=== PATIENT | male | born 1960 | race Caucasian/White ===

== ENCOUNTER 2025-01-02 06:23 | Inpatient (IN) | payer MEDICARE, SELFPAY ==
[2025-01-02] VITALS (7 sets, daily range): BP systolic 82–147; BP diastolic 57–71; PULSE 69–78; RESP 19–20; TEMP 36.6–36.8; O2SAT 93–100; BMI 25.8
--- NOTE | 2025-01-02 06:44 | W.ED.ABDPA2 ---
HPI - Abdominal Pain General: Chief Complaint: Abdominal Pain Stated Complaint: abdominal pain Time Seen by Provider: 01/02/25 06:24 History of Present Illness: 64-year-old male presents emergency room with complaints of abdominal discomfort. 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 He has been constipated recently. He denies any fever sweats chills no chest pain no vomiting. No fever sweats or chills no dysuria urgency or frequency. He has some rather eccentric responses at times in random thoughts but definitely this is typical since he has had his brain aneurysm. He was seen in [place] for this some 20 years ago. No recent trauma to the head or the abdomen. Associated Symptoms: Reports constipation; Denies chills, dysuria and fever(s) Related Data Home Medications ?Medication ?Instructions ?Recorded ?Confirmed No Known Home Medications 01/02/25 01/02/25 Allergies Allergy/AdvReac Type Severity Reaction Status Date / Time No Known Drug Allergies Allergy Unknown Unknown Verified 02/01/22 15:34 Review of Systems Const: Denies: fever(s) or chills Card: Denies: chest pain Resp: Denies: dyspnea GI: Reports: abdominal pain and constipation : Denies: dysuria, urinary frequency or urinary urgency Musc: Denies: neck pain or back pain Skin/Breast: Denies: rash PFSH ED PFSH: Medical History (Updated 01/02/25 @ 12:48 by Omar Rivers DO) Brain aneurysm Social History Smoking and tobacco/nicotine status: current every day tobacco/nicotine user Physical Exam Const: COMMON NORMALS: no acute distress GENERAL APPEARANCE: cooperative and comfortable ORIENTATION/CONSCIOUSNESS: Yes awake HENMT: COMMON NORMALS: normocephalic, atraumatic and hearing grossly normal bilaterally HEAD & SCALP: normocephalic and atraumatic Resp: COMMON NORMALS: normal respiratory effort, No retractions, No use of accessory muscles and clear to auscultation bilaterally AUSCULTATION: clear to auscultation bilaterally Cardio: COMMON NORMALS: regular rate, regular rhythm and No murmurs present (Cardio) RATE: regular rate RHYTHM: regular rhythm GI: COMMON NORMALS: Soft to palpation and No hepatosplenomegaly present AUSCULTATION: Yes normoactive bowel sounds PALPATION: Yes Soft to palpation, No Tenderness to palpation present (GI), No Guarding due to palpation present (GI) and Yes No hepatosplenomegaly present Extremity: COMMON NORMALS: normal to inspection, capillary refill normal, no clubbing, cyanosis or edema, no calf tenderness and no pedal edema Skin: COMMON NORMALS: no rashes or lesions noted GENERAL SKIN EXAM: no rashes or lesions noted Course Vital Signs: Vital signs: Vital Signs Temperature 98 F 01/02/25 06:35 Pulse Rate 70 01/02/25 10:08 Respiratory Rate 20 H 01/02/25 06:30 Blood Pressure 128/64 01/02/25 10:25 Pulse Oximetry 100 01/02/25 10:08 Oxygen Delivery Me thod Room Air 01/02/25 10:08 MDM - Abdominal Pain Medical Decision Making Initially on the scene patient to report from bystanders in the room with the patient to her friends and family stated that this was his baseline since brain aneurysm. Nurse had written in the chief complaint that he was there for abdominal pain. They related to the nurse that he has known cognitive delays due to the previous aneurysm. Afterward completed the workup was reviewing and they stated now that the bigger problem was not the abdominal pain but was his confusion and they felt all of this was new within the last week. As opposed to the abdominal pain has been going on for a year. His vital signs are stable his ammonia level is slightly elevated there is no known history of seizure disorder and he is not had any witnessed episodes suggestive of a seizure this morning his lipase is mildly elevated CT is negative his ammonia is mildly elevated there is no significant liver disc abnormality noted on the CT and his transaminases T. bili are all normal. Placed on observation for altered mental status discussed Dr. Osorio orders written Medical Records I reviewed the patient's medical records. Lab Data I reviewed the patient's lab results. 01/02/25 06:40 01/02/25 06:40 Labs/Radiology: Radiology Impressions Head CT 01/02/25 07:02 IMPRESSION: No acute intracranial abnormality. Abdomen/Pelvis CT 01/02/25 07:03 IMPRESSION: 1. Limited noncontrast examination without CT evidence of acute intra-abdominal or pelvic pathology. 2. Additional findings, as above. COMMENTS: Consistent with the [employer]'s Incidental Findings Committee white paper (J Am Blayne Radiol 2018): Any incidental renal lesion less than 1 cm or classified as too small to characterize, or any incidental cystic renal lesion characterized as simple-appearing, is likely benign. No follow-up imaging is recommended for these lesions per consensus recommendations based on imaging criteria. Laboratory Results WBC 3.96 10^3/uL (3.29-11.43) 01/02/25 06:40 RBC 4.02 10^6/uL (3.85-5.65) 01/02/25 06:40 Hgb 13.50 g/dL (11.27-16.99) 01/02/25 06:40 Hct 38.6 % (37-53) 01/02/25 06:40 MCV 96.0 fl (82-101) 01/02/25 06:40 MCH 33.6 pg (27-33) H 01/02/25 06:40 MCHC 35.0 g/dL (30-55) 01/02/25 06:40 RDW 13.6 % (12.1-15.1) 01/02/25 06:40 Plt Count 211 10^3/cmm (157-399) 01/02/25 06:40 MPV 8.9 fL (7.4-10.4) 01/02/25 06:40 Neut % (Auto) 34.6 % 01/02/25 06:40 Lymph % (Auto) 55.3 % 01/02/25 06:40 [place] % (Auto) 3.3 % 01/02/25 06:40 Eos % (Auto) 5.3 % 01/02/25 06:40 Baso % (Auto) 1.0 % 01/02/25 06:40 Neut # (Auto) 1.37 10^3/uL (1.8-7.7) L 01/02/25 06:40 Lymph # (Auto) 2.2 10^3/uL (0.8-4.8) 01/02/25 06:40 [place] # (Auto) 0.1 10^3/uL (0.2-0.9) L 01/02/25 06:40 Eos # (Auto) 0.2 10^3/uL (0.0-0.8) 01/02/25 06:40 Baso # (Auto) 0.0 10^3/uL (0.0-0.1) 01/02/25 06:40 Nucleated RBC % (auto) 0 % 01/02/25 06:40 Nucleated RBCs # 0.0 /100WBC 01/02/25 06:40 Sodium 138 mmol/L (136-145) 01/02/25 06:40 Potassium 4.3 mmol/L (3.5-5.1) 01/02/25 06:40 Chloride 101 mmol/L (98-107) 01/02/25 06:40 Carbon Dioxide 27 mmol/L (22-29) 01/02/25 06:40 Anion Gap 14.3 (5-19) 01/02/25 06:40 BUN 19 mg/dL (8-23) 01/02/25 06:40 Creatinine 1.0 mg/dL (0.7-1.2) 01/02/25 06:40 GFR Calculation 75.5 mL/min (90-130) L 01/02/25 06:40 Glucose 112 mg/dL (65-115) 01/02/25 06:40 Calculated Osmolality 289 mOsm/kg (285-295) 01/02/25 06:40 Lactic Acid 0.6 mmol/L (0.5-2.2) 01/02/25 06:40 Calcium 9.6 mg/dL (8.5-10.5) 01/02/25 06:40 Total Bilirubin 0.6 mg/dL (0.15-1.2) 01/02/25 06:40 AST 23 U/L (0-40) 01/02/25 06:40 ALT 23 U/L (0-41) 01/02/25 06:40 Alkaline Phosphatase 52 U/L (40-130) 01/02/25 06:40 Ammonia 81 umol/L (16-60) H 01/02/25 07:58 Creatine Kinase 112 U/L (39-308) 01/02/25 06:40 Total Protein 8.2 g/dL (6.6-8.7) 01/02/25 06:40 Albumin 4.9 g/dL (3.5-5.2) 01/02/25 06:40 Globulin 3.3 g/dL (1.3-4.6) 01/02/25 06:40 Lipase 65 U/L (13-60) H 01/02/25 06:40 Urine Color Yellow (Yellow) 01/02/25 07:09 Urine Appearance Clear (CLEAR) 01/02/25 07:09 Urine pH 6 (5-7) 01/02/25 07:09 Ur Specific [place] 1.015 (1.005-1.030) 01/02/25 07:09 Urine Protein Neg (Negative) 01/02/25 07:09 Urine Glucose (UA) Norm (Normal) 01/02/25 07:09 Urine Ketones Negative (Negative) 01/02/25 07:09 Urine Blood Neg (Negative) 01/02/25 07:09 Urine Nitrate Negative (Negative) 01/02/25 07:09 Urine Bilirubin Neg (Negative) 01/02/25 07:09 Urine Urobilinogen Neg mg/dL (Negative) 01/02/25 07:09 Ur Leukocyte Esterase Negative (Negative) 01/02/25 07:09 Urine RBC 0-2 /hpf (0-2) 01/02/25 07:09 Urine WBC 0-5 /hpf (0-5) 01/02/25 07:09 Ur Squamous Epith Cells 0-5 /hpf (0-5) 01/02/25 07:09 Amorphous Sediment Not Reportable 01/02/25 07:09 Urine Bacteria None seen /hpf (NONE) 01/02/25 07:09 Hyaline Casts 0-4 /lpf H 01/02/25 07:09 Salicylates < 0.3 mg/dL (3-10) L 01/02/25 06:40 Urine Opiates Screen Negative ng/mL (Negative) 01/02/25 07:09 Acetaminophen < 5.0 ug/mL (10-30) L 01/02/25 06:40 Ur Barbiturates Screen Negative ng/mL (Negative) 01/02/25 07:09 Ur Phencyclidine Scrn Negative ng/mL (Negative) 01/02/25 07:09 Ur Amphetamines Screen Negative ng/mL (Negative) 01/02/25 07:09 U Benzodiazepines Scrn Negative ng/mL (Negative) 01/02/25 07:09 Urine Cocaine Screen Negative ng/mL (Negative) 01/02/25 07:09 U Marijuana (THC) Screen Positive ng/mL (Negative) H 01/02/25 07:09 Ethyl Alcohol < 10 mg/dL (0-10) 01/02/25 06:40 Influenza A (PCR) Negative (Negative) 01/02/25 07:08 Influenza Type B (PCR) Negative (Negative) 01/02/25 07:08 RSV (PCR) Negative (Negative) 01/02/25 07:08 SARS-CoV-2 (PCR) Negative (Negative) 01/02/25 07:08 All radiology interpretation(s) finalized by discharge Discharge Plan Discharge Patient Disposition: Placed in Observation Admit Provider: Ryan Osorio Clinical Impression: Altered mental status, Abdominal pain Condition: Stable Coding Level of Care Code ED Manufacturing Engineer Supervisor for Gely Olivares
[2025-01-02 06:50] LABS: Eosinophils # 0.2 10^3/uL (0.0-0.8); Eosinophils % 5.3 %; Hematocrit 38.6 % (37-53); Lymphocytes # 2.2 10^3/uL (0.8-4.8); Lymphocytes % 55.3 %; Mean Corpuscular Hemoglobin 33.6 pg (27-33); Mean Platelet Volume 8.9 fL (7.4-10.4); Monocytes # 0.1 10^3/uL (0.2-0.9); Monocytes % 3.3 %; Neutrophils # 1.37 10^3/uL (1.8-7.7); Neutrophils % 34.6 %; Nucleated Red Blood Cells % 0 %; Platelet Count 211 10^3/cmm (157-399); Red Blood Count 4.02 10^6/uL (3.85-5.65); Red Cell Distribution Width 13.6 % (12.1-15.1); White Blood Count 3.96 10^3/uL (3.29-11.43)
--- NOTE | 2025-01-02 07:02 | CTR_ITS ---
PROCEDURE INFORMATION: Exam: CT Head Without Contrast Exam date and time: 01/02/2025 7:17 AM Age: 64 years old Clinical indication: Altered mental status/memory loss; Additional info: Altered mental status, history of brain aneurysm TECHNIQUE: Imaging protocol: Computed tomography of the head without contrast. Radiation optimization: All CT scans at this facility use at least one of these dose optimization techniques: automated exposure control; mA and/or kV adjustment per patient size (includes targeted exams where dose is matched to clinical indication); or iterative reconstruction. COMPARISON: No relevant prior studies available. RADIATION DOSE METRICS: Total DLP (mGy-cm): 1358.68 FINDINGS: Brain: Normal. No hemorrhage. Unremarkable white matter. No mass effect. Cerebral ventricles: No ventriculomegaly. Paranasal sinuses: Visualized sinuses are unremarkable. No fluid levels. Mastoid air cells: Visualized mastoid air cells are well aerated. Bones: Mild/moderate chronic pansinusitis most severely affecting the ethmoids. Soft tissues: Unremarkable. CT/CT head wo con* [id number] IMPRESSION: No acute intracranial abnormality.
--- NOTE | 2025-01-02 07:03 | CTR_ITS ---
PROCEDURE INFORMATION: Exam: CT Abdomen And Pelvis Without Contrast Exam date and time: 01/02/2025 7:21 AM Age: 64 years old Clinical indication: Abdominal pain TECHNIQUE: Imaging protocol: Computed tomography of the abdomen and pelvis without contrast. Axial, coronal and sagittal reformatted images were created and reviewed. Radiation optimization: All CT scans at this facility use at least one of these dose optimization techniques: automated exposure control; mA and/or kV adjustment per patient size (includes targeted exams where dose is matched to clinical indication); or iterative reconstruction. COMPARISON: No relevant prior studies available. RADIATION DOSE METRICS: Total DLP (mGy-cm): 482.77 FINDINGS: Liver: Unremarkable. Gallbladder and biliary ducts: No radiodense gallstones. No biliary ductal dilatation. Pancreas: Unremarkable. Spleen: Unremarkable. Adrenal glands: Normal. No mass. Kidneys and ureters: Bilateral renal cysts, measuring up to 3.2 cm on the right (no follow-up is indicated based on the imaging appearance). No radiodense calculi. No hydronephrosis. Stomach and bowel: No bowel wall thickening. No obstruction. No pneumatosis. Appendix: Normal. Intraperitoneal space: No free fluid. No organized fluid collection. No free air. Vasculature: Mild atherosclerotic disease. No aneurysm. Lymph nodes: No pathologically enlarged lymph nodes. Urinary bladder: Mild circumferential urinary bladder wall thickening, likely secondary to underdistention. Reproductive: Unremarkable. Bones/joints: No acute osseous abnormality. Osteopenia. Degenerative changes. Soft tissues: Unremarkable. CT/CT abdomen pelvis con [id number] IMPRESSION: 1. Limited noncontrast examination without CT evidence of acute intra-abdominal or pelvic pathology. 2. Additional findings, as above. COMMENTS: Consistent with the [place] [employer]'s Incidental Findings Committee white paper (J Am Blayne Radiol 2018): Any incidental renal lesion less than 1 cm or classified as too small to characterize, or any incidental cystic renal lesion characterized as simple-appearing, is likely benign. No follow-up imaging is recommended for these lesions per consensus recommendations based on imaging criteria.
[2025-01-02 07:11] LABS: Alanine Aminotransferase 23 U/L (0-41); Albumin Level 4.9 g/dL (3.5-5.2); Alkaline Phosphatase 52 U/L (40-130); Anion Gap 14.3 (5-19); Aspartate Amino Transferase 23 U/L (0-40); Blood Urea Nitrogen 19 mg/dL (8-23); Calcium 9.6 mg/dL (8.5-10.5); Carbon Dioxide 27 mmol/L (22-29); Chloride 101 mmol/L (98-107); Creatinine Clr Calc Pharmacy 79.3224; Globulin 3.3 g/dL (1.3-4.6); Glomerular Filtration Rate 75.5 mL/min (90-130); Glucose 112 mg/dL (65-115); Lipase 65 U/L (13-60); Osmolality Calculated 289 mOsm/kg (285-295); Potassium 4.3 mmol/L (3.5-5.1); Sodium 138 mmol/L (136-145); Total Bilirubin 0.6 mg/dL (0.15-1.2); Total Protein 8.2 g/dL (6.6-8.7)
[2025-01-02 07:24] LABS: Creatine Phosphokinase 112 U/L (39-308); Lactic Sepsis W/Reflex 0.6 mmol/L (0.5-2.2)
[2025-01-02 07:25] LABS: Acetaminophen < 5.0 ug/mL (10-30); Alcohol Level < 10 mg/dL (0-10); Salicylate < 0.3 mg/dL (3-10)
[2025-01-02 07:29] LABS: Amphetamines Screen Urine Negative (Negative); Barbiturates Screen Urine Negative (Negative); Benzodiazepines Screen Urine Negative (Negative); Cocaine Screen Urine Negative (Negative); Opiate Screen Urine Negative (Negative); PCP Screen Urine Negative (Negative); THC Screen Urine Positive (Negative)
[2025-01-02 07:36] LABS: Bacteria Urine None Seen /hpf; Hyaline Casts Urine 0-4 /lpf; RBC Urine 0-2 /hpf (0-2); Squamous Epithelial Cell Urine 0-5 /hpf (0-5); WBC Urine 0-5 /hpf (0-5)
[2025-01-02 07:48] LABS: Add Urine Microscopic? YES; Bilirubin Urine Neg (Negative); Blood Urine Neg (Negative); Glucose Urine UA Norm (Normal); Ketones Urine Negative (Negative); Leukocyte Esterase Urine Negative (Negative); Nitrate Urine Negative (Negative); Protein Urine Neg (Negative); Specific Gravity, Urine 1.015 (1.005-1.030); Urine Appearance Clear (CLEAR); Urine Color Yellow (Yellow); Urobilinogen Urine Neg (Negative); pH Urine 6 (5-7)
[2025-01-02 07:53] LABS: Influenza A NEGATIVE (Negative); Influenza B NEGATIVE (Negative); Respiratory Syncytial Virus Ce NEGATIVE (Negative); SARS-CoV-2 PCR NEGATIVE (Negative)
[2025-01-02 08:53] LABS: Ammonia 81 umol/L (16-60)
[2025-01-02] MEDS: lidocaine 2% viscous 15 ML, aluminum-mag hydrox-simethicon 30 ML, sucralfate oral liq 1 GM PO (11:38)
--- NOTE | 2025-01-02 12:24 | MR_ITS ---
WS: [id number] MRI HEAD WITHOUT CONTRAST TECHNIQUE: Sagittal T1, T2 axial, T2 axial FLAIR, axial and coronal T1 images, axial susceptibility weighted imaging, axial diffusion weighted images, and coronal T2 images were obtained. CLINICAL INFORMATION: ams COMPARISON: CT 01/02/2025 FINDINGS: No evidence of restricted diffusion to suggest acute ischemia. Ventricular system and basal cisterns are patent. Mild small vessel changes. Mild parenchymal volume loss. Small vessel changes in the hedy. Paranasal sinusitis. Mastoid air cells are well aerated. Normal posterior nasopharynx. Small vessel changes in the hedy. No hemosiderin on susceptibility weighted images. Normal optic chiasm and pituitary infundibulum. MR/MR head wo con* [id number] IMPRESSION: 1. No evidence of restricted diffusion to suggest acute ischemia. 2. Mild small vessel changes with mild parenchymal volume loss. Small vessel c hanges in the hedy. 3. Mucosal thickening in the paranasal sinuses. Fluid within the frontal sinus es and ethmoid air cells compatible with sinusitis. 4. No other acute findings.
--- NOTE | 2025-01-02 13:08 | PM.HP ---
Providers/Chief Complaint Admitting Physician: Ryan Osorio MD Chief Complaint: abdominal pain History of Present Illness William Robles is a 64 year old male with a past medical history bipolar depression, history of ruptured brain aneurysm not requiring any surgical intervention, who presents [facility] due to altered mental status, abdominal discomfort. Patient was examined he is sitting up to the side of the bed, patient sister is at bedside he is alert to person, to place, to time, his responses are quite delayed, frequently spaces out, has trouble coming up with the right answer at times, has word salad at times, but can you most of these answers appropriately. He tells me that he was born in [place], he was born at [facility], he used to fix televisions, he is currently retired, he spends most of his senior living with friends, denies any alcohol consumption, does report marijuana use, denies any drug use, denies any smoking, denies any new medications, denies any supplements. He spends most of his time gardening, he lives by himself, he knows his address, he has not noticed anything specifically recently, no falls, no injuries, no recent travel. He recognizes that he is off at times, he has trouble coming up with the right answers, denies any dysuria, hematuria, no neck pain, neck stiffness, no fevers, no chills, no chest pain, shortness of breath, he has reports of acid reflux but no abdominal pain per se. He does also report that recently he underwent a divorce, this is roughly 6 months ago denies feeling down depressed or sad, denies any suicidal ideation, no homicidal ideation, does for report metallic taste in his mouth, he also does report that he has been seeing things are not there, shadows, no blurry vision, no headache, no seizure-like symptoms Review of Systems Const: Denies: fever(s), chills, fatigue or malaise Eyes: Denies: change in vision Card: Denies: chest pain or dyspnea on exertion Resp: Denies: dyspnea GI: Denies: abdominal pain : Denies: flank pain or difficulty urinating Musc: Denies: neck pain or back pain Skin/Breast: Denies: rash Neuro: Reports: confusion and difficulty communicating thoughts; Denies: headache(s), numbness in extremities, weakness in extremities, sensory changes, lack of coordination, difficulty walking, frequent falls, dizziness, behavioral changes, Slurred speech present, seizure-like activity or involuntary movements Psych: Reports: sleeping less; Denies: anxiety, depression, mood swings, panic attacks, hopelessness, loss of interest, visual hallucinations, auditory hallucinations, tactile hallucinations, suicidal ideation or homicidal ideation Medications/Allergies Home Medications ?Medication ?Instructions ?Recorded ?Confirmed ?Last Taken ?Type No Known Home Medications 01/02/25 01/02/25 Unknown History Allergies Allergy/AdvReac Type Severity Reaction Status Date / Time No Known Drug Allergies Allergy Unknown Unknown Verified 02/01/22 15:34 PFSH Acute PFSH: Medical History (Updated 01/02/25 @ 13:15 by Ryan Osorio MD) Brain aneurysm Social History Smoking and tobacco/nicotine status: current every day tobacco/nicotine user Vitals/I&O/Wt Last Vital Signs Temp 98 F 01/02/25 06:35 Pulse 70 01/02/25 10:08 Resp 20 H 01/02/25 06:30 BP 128/64 01/02/25 10:25 Pulse Ox 100 01/02/25 10:08 O2 Del Method Room Air 01/02/25 10:08 01/01/25 01/02/25 01/02/25 22:59 06:59 14:59 Intake Total 0 / 0 Balance 0 / 0 Weight last 48 hrs Weight 79.379 kg Physical Exam Const: COMMON NORMALS: no acute distress and patient oriented x3 HENMT: COMMON NORMALS: normocephalic HEAD & SCALP: normocephalic Eye: COMMON NORMALS: Equal, round and reactive pupils present and EOMs intact bilaterally Neck/C-Spine: COMMON NORMALS: no JVD Resp: COMMON NORMALS: normal respiratory effort, No retractions, No use of accessory muscles and clear to auscultation bilaterally AUSCULTATION: clear to auscultation bilaterally Cardio: COMMON NORMALS: no JVD, regular rate, regular rhythm, S1 normal heart sound present and S2 normal heart sound present RATE: regular rate RHYTHM: regular rhythm HEART SOUNDS: S1 normal heart sound present and S2 normal heart sound present GI: COMMON NORMALS: Normal to inspection, nondistended, normoactive bowel sounds present, Soft to palpation and non-tender : COMMON NORMALS: Yes no CVA tenderness Extremity: COMMON NORMALS: no calf tenderness and no pedal edema Neuro: COMMON NORMALS: patient oriented x3, CN's II-XII intact bilaterally, moves all extremities and no focal motor deficits OTHER: [id number] is abnormal on the left Does have word finding difficulty Psych: COMMON NORMALS: mental status grossly normal Data 01/02/25 06:40 01/02/25 06:40 Micro: Microbiology 01/02/25 08:05 Blood Culture - Preliminary Blood SPECIMEN COLLECTED 01/02/25 07:58 Blood Culture - Preliminary Blood SPECIMEN COLLECTED A&P Assessment and plan (1) Acute encephalopathy: Plan Acute encephalopathy - Complaints of metallic taste - Complaints of word finding difficulty -Strange mannerisms, frequent looks away, blank staring - Does complain of seeing things are not there - Does report undergoing a divorce recently Plan - Possible seizure-like episodes? Absence seizure's, will do a trial of Keppra, seizure precautions - MRI brain - Will follow ammonia levels - TSH - CRP, Pro-Ganesh, sed rate - Neurochecks -NIH stroke scale - Word finding difficulty possible seizures, aspirin, statin? -Possible anxiety/depression/schizophrenia with recent divorce, consult Dr. Fournier - PT OT, speech therapy - Full code - Lovenox, SCDs for DVT prophylaxis PDMP PDMP Reviewed: Not Reviewed Attestations Medical Necessity Statement*: Patient requires hospitalization for acute encephalopathy, outpatient with observation, Diagnoses Acute encephalopathy G93.40
[2025-01-02 13:35] LABS: Erythrocyte Sedimentation Rate 1 mm/hr (0-10)
[2025-01-02] MEDS: pantoprazole 40 mg SDV IVP (13:45)
[2025-01-02] MEDS: levETIRAcetam 1,000 MG/100 ML PREMIX 400 MG IV (13:46)
[2025-01-02] MEDS: ALPRAZolam 0.5 mg Tablet 0.25 MG PO (13:46)
[2025-01-02 13:48] LABS: Estmated Average Glucose 117; Hemoglobin A1C 5.7 % (4.0-6.0)
--- NOTE | 2025-01-02 13:53 | PC.NURSE ---
PATIENT IS NOT WANTING VITALS TAKEN AT THIS TIME
[2025-01-02 13:56] LABS: Procalcitonin 0.04 ng/mL (0-0.5); Thyroid Stimulating Hormone 3.21 uIU/mL (0.27-4.20)
[2025-01-02 14:07] LABS: Chol HDL Ratio 5.21 mg/dL (1.0-5.00); Cholesterol 198 mg/dL (0-200); HDL Cholesterol 38 mg/dL (60-100); LDL Cholesterol Calculated 143 mg/dL (50-129); LDL HDL Ratio 3.76 RATIO (0.00-3.22); Triglycerides 83 mg/dL (0-150)
[2025-01-02 14:22] LABS: Partial Thromboplastin Time 27.6 SECONDS (23.9-36.7)
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
--- NOTE | 2025-01-02 15:54 | PC.NURSE ---
Admission/medication delay d/t Dr. Fournier assessment of patient.
[2025-01-02] MEDS: sodium chloride 0.9% 1,000 ML 75 ML IV (17:10)
[2025-01-02] MEDS: aspirin 81 mg EC Tablet PO (17:10)
[2025-01-02] MEDS: haloperidol inj 5 mg/mL INJ 1 mL 1 MG IM (18:35)
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
[2025-01-03 02:23] LABS: Basophils % 0.5 %; Eosinophils # 0.2 10^3/uL (0.0-0.8); Eosinophils % 4.4 %; Hematocrit 35.7 % (37-53); Lymphocytes # 2.5 10^3/uL (0.8-4.8); Lymphocytes % 65.6 %; Mean Corpuscular HGB Conc 35.3 g/dL (30-55); Mean Corpuscular Hemoglobin 33.9 pg (27-33); Mean Platelet Volume 8.9 fL (7.4-10.4); Monocytes # 0.2 10^3/uL (0.2-0.9); Monocytes % 4.4 %; Neutrophils % 24.8 %; Nucleated Red Blood Cells % 0 %; Platelet Count 180 10^3/cmm (157-399); Red Blood Count 3.72 10^6/uL (3.85-5.65); Red Cell Distribution Width 13.5 % (12.1-15.1); White Blood Count 3.87 10^3/uL (3.29-11.43)
[2025-01-03 02:42] LABS: Neutrophils # 0.96 10^3/uL (1.8-7.7)
[2025-01-03 02:53] LABS: Alanine Aminotransferase 18 U/L (0-41); Albumin Level 4.1 g/dL (3.5-5.2); Alkaline Phosphatase 45 U/L (40-130); Anion Gap 9.1 (5-19); Aspartate Amino Transferase 16 U/L (0-40); Blood Urea Nitrogen 17 mg/dL (8-23); Calcium 8.6 mg/dL (8.5-10.5); Carbon Dioxide 25 mmol/L (22-29); Chloride 107 mmol/L (98-107); Creatinine Clr Calc Pharmacy 72.1113; Globulin 2.7 g/dL (1.3-4.6); Glomerular Filtration Rate 67.6 mL/min (90-130); Glucose 91 mg/dL (65-115); Osmolality Calculated 285 mOsm/kg (285-295); Potassium 4.1 mmol/L (3.5-5.1); Sodium 137 mmol/L (136-145); Total Bilirubin 0.7 mg/dL (0.15-1.2); Total Protein 6.8 g/dL (6.6-8.7)
[2025-01-03 02:57] LABS: Ammonia 40 umol/L (16-60)
[2025-01-03 03:54] VITALS: BP 92/51; PULSE 64; RESP 17; TEMP 36.8; O2SAT 97
--- NOTE | 2025-01-03 03:54 | PC.NURSE ---
Patient refused answering personal questions but did comply with neuro exams and NIH scale assessment.
[2025-01-03 07:41] VITALS: BP 97/62; PULSE 60; RESP 16; TEMP 36.9; O2SAT 97
[2025-01-03] MEDS: aspirin 81 mg EC Tablet PO (08:49)
[2025-01-03] MEDS: ALPRAZolam 0.5 mg Tablet 0.25 MG PO (09:23)
[2025-01-03] MEDS: OLANZapine 5 mg ODT PO ×2 (09:55→21:46)
[2025-01-03 11:59] VITALS: BP 112/66; PULSE 53; RESP 18; TEMP 36.5; O2SAT 96
--- NOTE | 2025-01-03 14:05 | PM.PN ---
Subjective Subjective: Patient was seen this morning, overnight he had episodes of confusion, paranoia, he was seen ambulating the hallways, currently is alert to person, not to place, not to time, he can follow commands, no facial droop, no slurring of words, no focal weakness, he tends to space out, he tends to stutter, but I cannot discern any significant slurring of his words, he does have trouble coming up with words, word salad, but does eventually come up with the right word, family tells me that they are concerned for his behaviors, appear as he is having acute psychosis, he tells me that he prefers to talk to his Schaman, someone more spiritual about his thoughts, he declines a front end alignment specialist, discussed with family including sister and son over the phone about patient's MRI findings, ammonia levels are now within normal limits, discussed monitoring him in the neuropsychiatric unit,, during my conversation with patient he does have poor eye contact, he does appear quite easily distracted, is often tangential in his thinking, at times does have paranoid thinking, Vitals/I&O/Wt Last Vital Signs Temp 97.7 F 01/03/25 11:59 Pulse 53 L 01/03/25 11:59 Resp 18 01/03/25 11:59 BP 112/66 01/03/25 11:59 Pulse Ox 96 01/03/25 11:59 O2 Del Method Room Air 01/03/25 11:59 01/02/25 01/03/25 01/03/25 22:59 06:59 14:59 Intake Total 211.25 / 211.25 240 / 451.25 360 / 360 Balance 211.25 / 211.25 240 / 451.25 360 / 360 Weight last 48 hrs Weight 76.612 kg Weight 79.379 kg Physical Exam Const: COMMON NORMALS: no acute distress Eye: COMMON NORMALS: Equal, round and reactive pupils present PUPIL: Yes Equal, round and reactive pupils present Resp: COMMON NORMALS: normal respiratory effort, No retractions, No use of accessory muscles and clear to auscultation bilaterally AUSCULTATION: clear to auscultation bilaterally Cardio: COMMON NORMALS: regular rate, regular rhythm, S1 normal heart sound present and S2 normal heart sound present RATE: regular rate RHYTHM: regular rhythm HEART SOUNDS: S1 normal heart sound present and S2 normal heart sound present GI: COMMON NORMALS: Normal to inspection, nondistended, normoactive bowel sounds present and non-tender Extremity: COMMON NORMALS: no pedal edema Data 01/03/25 02:15 01/03/25 02:15 Micro: Microbiology 01/02/25 08:05 Blood Culture - Preliminary Blood NEGATIVE TO DATE 01/02/25 07:58 Blood Culture - Preliminary Blood NEGATIVE TO DATE A&P Assessment and plan (1) Acute encephalopathy: Plan Acute encephalopathy - Complaints of metallic taste, ordered copper levels, metals poisoning - Complaints of word finding difficulty, MRI no acute stroke -Strange mannerisms, frequent looks away, blank staring did a trial of Keppra for concerns for possible absence seizure's, no significant improvement of his mentation - Does complain of seeing things are not there, paranoid thinking highly suspicious for acute psychosis versus bipolar versus schizophrenia - Does report undergoing a divorce recently -Ammonia levels within normal limits Plan -Will move to neuropsychiatric unit -Possible anxiety/depression/schizophrenia/psychosis with recent divorce, consult Dr. Fournier - Aspirin, statin - Full code - Lovenox, SCDs for DVT prophylaxis PDMP PDMP Reviewed: Not Reviewed Attestations Medical Necessity Statement*: Patient requires hospitalization for acute encephalopathy, concerns for acute psychosis Diagnoses Acute encephalopathy G93.40
--- NOTE | 2025-01-03 15:00 | PC.NURSE ---
Report called to YANELI Mckenna Charge in NPU. Patient was transferred down by wheelchair with all belongings in street clothes. Nursing staff was notified that patient was still wearing his belt.
[2025-01-03 16:00] VITALS: BP 121/77; PULSE 65; RESP 16; TEMP 36.4; O2SAT 98
--- NOTE | 2025-01-03 18:08 | P.NPUPN_ITS ---
Subjective NPU 2 Subjective: Patient presented today reporting that he is unclear as to why he is here. He was transferred to the neuropsychiatric unit and seemed quite confused and paranoid upon arrival per staff reports and direct observations. He was somehow under the impression that the security guards that were down here were specifically for him. At 1 point he asserted that this production underwriter had taken the story that he had discussed yesterday and repeated it today and that absolutely had not occurred. We discussed feeling a need for medication to assist the situation. He continues to be resistant to medication and to being here to some degree. We discussed the fact that his son arrived and he concurred with patient's sisters that this was very out of his nature and something that they hoped would be evaluated and treated. Mental Status Exam 2 MSE Comments: This is a short, slender but well developed white male with adequate grooming with and limited eye contact. With significant eye closing while conversing. No abnormal movements except for mild to moderate psychomotor retardation. With occasional psychomotor agitation with certain questions. He was mostly cooperative with exam in moderate distress. Speech was slightly decreased rate and volume with pauses reflective of word finding or desire to be overly perfect with word choice. Mood described as okay, affect is congruent and occasionally irritable. Thought process, linear. Thought content: patient denies suicidal or homicidal ideation, no delusions noted but some guardedness, paranoia and persecutory thinking noted. He also tended towards being overly philosophical about even some basic questions. He denied auditory or visual hallucinations. Attention and concentration are intact and memory appeared mostly reliable, but none were formally tested. He is alert and oriented x 3. Insight and judgment appeared limited, impulse control was impaired. Vitals/I&O/Wt Last Vital Signs Temp 97.6 F 01/03/25 16:00 Pulse 65 01/03/25 16:00 Resp 16 01/03/25 16:00 BP 121/77 01/03/25 16:00 Pulse Ox 98 01/03/25 16:00 O2 Del Method Room Air 01/03/25 16:00 01/03/25 14:59 Intake Total 648.75 / 648.75 Balance 648.75 / 648.75 Weight last 48 hrs Weight 73.845 kg Weight 73.845 kg Weight 76.612 kg Weight 79.379 kg Data NPU 01/03/25 02:15 04/05/25 02:15 Micro: Microbiology 01/02/25 08:05 Blood Culture - Preliminary Blood NEGATIVE TO DATE 01/02/25 07:58 Blood Culture - Preliminary Blood NEGATIVE TO DATE Microbiology 01/02/25 08:05 Blood Blood Culture - Preliminary NEGATIVE TO DATE 01/02/25 07:58 Blood Blood Culture - Preliminary NEGATIVE TO DATE A&P Assessment and plan (1) Altered mental status: (2) Acute encephalopathy: (3) Psychosis: (4) Cannabis use disorder, severe, dependence: (5) History of bipolar disorder: (6) Sleep paralysis: (7) Sleep disturbance, unspecified: Plan This is a 64 year old white male with a history of drug use reporting cannabis use for 50 years and diagnosis of a psychotic disorder namely bipolar disorder for which she reportedly is on disability secondary to who presents with altered mental status. The assessment indicates that the patient is experiencing a psychosis of unknown etiology but possibly related to to sleep disturbances, cannabis or medical comorbidity yet to be unveiled or revealed. Current situation potentially exacerbated by a lack of sleep. There is a noted history of bipolar disorder, and the patient has been experiencing emotional difficulties, which he self-admitted. The patient has a family history of brain tumors and bipolar disorder, which may contribute to his current condition. The patient also reports a spiritual ascension experience, which he associates with his current state. We discussed the role his daily cannabis use could be playing in his presentation but he is very resistant to the idea that cannabis can be a negative thing under any circumstance. 1. Recommend antipsychotic 2. Concern for possible bipolar episode with poor sleeping preceding this. 3. Will consider whether transfer to neuropsychiatric unit makes sense if medically cleared 4. Recommend sober living treatment at the highest level of care to which the patient is willing to commit. 5. Obtain collateral information. Spoke to son who has plans for an affidavit reporting that this is very out of his normal character. That these are odd vocalizations and jaime. 6. Consider 96-hour hold. PDMP PDMP Reviewed: Not Reviewed Attestations NPU 2 Medical Necessity Statement*: Inpatient hospitalization is medically necessary and the clinically appropriate intervention at this time. We will monitor/initiate medications and make changes as indicated. He will be in the hospital for over 2 midnights. Likely length of stay 5-7 days. Coding Level of Care Code Acute Code for Chg Fwd Diagnoses Altered mental status R41.82 Acute encephalopathy G93.40 Psychosis F29 Cannabis use disorder, severe, dependence F12.20 History of bipolar disorder Z86.59 Sleep paralysis G47.8 Sleep disturbance, unspecified G47.9
--- NOTE | 2025-01-03 18:14 | PC.NURSE ---
Pt came to this floor. He was tearful and embarassed to change his clothes out. He is very slow to collect his words and when asked if he is having trouble finding his words he states that he is just careful to select his words. He states that he has no family to support him, but the nurses on med surg state that family was around him and helped to make the decision. His son Derek also came to visit. He was positive for THC. Stroke was ruled out in Med Surg. Has a hx of brain bleed and bipolar. States that he recently and is lonely. He is paranoid and is easily irritated by loud sounds and people talking a lot. He is best to be in a room alone. He denies SI/HI. No pain reported. Dr. Fournier spoke more extensively with his son.
[2025-01-03 20:00] VITALS: BP 125/71; PULSE 66; RESP 17; TEMP 37.1
[2025-01-03] MEDS: atorvastatin 40 mg Tablet PO (21:46)
[2025-01-03] MEDS: trazodone 50 mg Tablet PO (21:46)
[2025-01-03 22:00] VITALS: BP 125/71; PULSE 66; RESP 17; TEMP 37.1; O2SAT 100
[2025-01-04] VITALS (9 sets, daily range): BP systolic 96–125; BP diastolic 58–71; PULSE 56–79; RESP 16–18; TEMP 36.9–37.1; O2SAT 95–98
[2025-01-04] MEDS: haloperidol 5 mg Tablet PO ×2 (00:10→21:37)
[2025-01-04] MEDS: trazodone 50 mg Tablet PO ×3 (00:10→21:37)
[2025-01-04] MEDS: hyDROXYzine 25 mg Capsule 50 MG PO ×3 (08:17→20:01)
[2025-01-04] MEDS: aspirin 81 mg EC Tablet PO (08:18)
--- NOTE | 2025-01-04 09:10 | PC.NURSE ---
Morning assessment During morning assessment, patient agitated about being on the unit, states that he cannot sleep here one more night. Patient raising his voice. Keegan with security sat and talked with patient for a while. Patient agreeable to take medication to help him relax. Administered vistaril 50mg PO.
--- NOTE | 2025-01-04 12:00 | P.NPUPN_ITS ---
Subjective NPU 2 Subjective: Patient presented today reporting that he is fine now that he is gotten some sleep. He tried to negotiate a plan for discharge and even said if he was allowed to discharge he would then take the medication. We discussed the clear psychotic thinking that he is displaying but he reports that his paranoia is factual without any supporting documentation or anyone in his family identifying the veracity of his statements. We discussed the fact that there would likely be a 96-hour hold so that we can start to address the need for medication and the ongoing paranoia and psychosis. We discussed the risks, benefits and alternatives of starting Invega and he understood and initially agreed to proceed as is documented in this note but then tried to negotiate a different plan. Mental Status Exam 2 MSE Comments: This is a short, slender but well developed white male with adequate grooming with and limited eye contact. With significant eye closing while conversing. No abnormal movements except for mild to moderate psychomotor retardation. With occasional psychomotor agitation with certain questions. He was mostly cooperative with exam in moderate distress. Speech was slightly decreased rate and volume with pauses reflective of word finding or desire to be overly perfect with word choice. Mood described as okay, affect is congruent and occasionally irritable. Thought process, linear. Thought content: patient denies suicidal or homicidal ideation, no delusions noted but some guardedness, paranoia and persecutory thinking noted. He also tended towards being overly philosophical about even some basic questions. He denied auditory or visual hallucinations. Attention and concentration are intact and memory appeared mostly reliable, but none were formally tested. He is alert and oriented x 3. Insight and judgment appeared limited, impulse control was impaired. Vitals/I&O/Wt Last Vital Signs Temp 98.7 F 01/04/25 04:00 Pulse 56 L 01/04/25 08:00 Resp 17 01/04/25 08:00 BP 96/58 01/04/25 08:00 Pulse Ox 97 01/04/25 06:00 O2 Del Method Room Air 01/03/25 16:09 Weight last 48 hrs Weight 73.845 kg Weight 73.845 kg Weight 76.612 kg Data NPU 01/03/25 02:15 01/03/25 02:15 Micro: Microbiology 01/02/25 08:05 Blood Culture - Preliminary Blood NEGATIVE TO DATE 01/02/25 07:58 Blood Culture - Preliminary Blood NEGATIVE TO DATE Microbiology 01/02/25 08:05 Blood Blood Culture - Preliminary NEGATIVE TO DATE 01/02/25 07:58 Blood Blood Culture - Preliminary NEGATIVE TO DATE A&P Assessment and plan (1) Altered mental status: (2) Acute encephalopathy: (3) Psychosis: (4) Cannabis use disorder, severe, dependence: (5) History of bipolar disorder: (6) Sleep paralysis: (7) Sleep disturbance, unspecified: Plan This is a 64 year old white male with a history of drug use reporting cannabis use for 50 years and diagnosis of a psychotic disorder namely bipolar disorder for which she reportedly is on disability secondary to who presents with altered mental status. The assessment indicates that the patient is experiencing a psychosis of unknown etiology but possibly related to to sleep disturbances, cannabis or medical comorbidity yet to be unveiled or revealed. Current situation potentially exacerbated by a lack of sleep. There is a noted history of bipolar disorder, and the patient has been experiencing emotional difficulties, which he self-admitted. The patient has a family history of brain tumors and bipolar disorder, which may contribute to his current condition. The patient also reports a spiritual ascension experience, which he associates with his current state. We discussed the role his daily cannabis use could be playing in his presentation but he is very resistant to the idea that cannabis can be a negative thing under any circumstance. 1. Recommend Invega if patient is willing to take. 2. Concern for possible bipolar episode with poor sleeping preceding this. 3. Will consider whether transfer to neuropsychiatric unit makes sense if medically cleared 4. Recommend sober living treatment at the highest level of care to which the patient is willing to commit. 5. Obtain collateral information. Spoke to son who has plans for an affidavit reporting that this is very out of his normal character. That these are odd vocalizations and jaime. 6. Initiate 96-hour hold. PDMP PDMP Reviewed: Not Reviewed Attestations NPU 2 Medical Necessity Statement*: Inpatient hospitalization is medically necessary and the clinically appropriate intervention at this time. We will monitor/initiate medications and make changes as indicated. He will be in the hospital for over 2 midnights. Likely length of stay 5-7 days. Coding Level of Care Code Acute Code for [facility] Fwd Diagnoses Altered mental status R41.82 Acute encephalopathy G93.40 Psychosis F29 Cannabis use disorder, severe, dependence F12.20 History of bipolar disorder Z86.59 Sleep paralysis G47.8 Sleep disturbance, unspecified G47.9
--- NOTE | 2025-01-04 12:48 | PC.NURSE ---
Patient was heard talking with security, stated that he constantly hears voices in his head, commentating on his actions/
[2025-01-04] MEDS: paliperidone ER 3 mg Tablet PO (14:31)
--- NOTE | 2025-01-04 15:13 | PC.NURSE ---
Dr. Fournier gave verbal approval for patient's son to bring in enure/enriched drinks because patient does not like what we have available at the hospital. Patient's son brought in two 4-pack cases. This nurse stickered them and placed them in patient fridge. The drinks in a metal can can be poured into styrofoam cups.
--- NOTE | 2025-01-04 16:18 | PC.NURSE ---
Patient placed on a 96-hour hold, using affidavits written by Dr. Fournier and by patient's son, Derek. No issues.
[2025-01-04] MEDS: atorvastatin 40 mg Tablet PO (20:00)
[2025-01-05] VITALS (7 sets, daily range): BP systolic 94–128; BP diastolic 56–70; PULSE 65–84; RESP 16–18; TEMP 36.6–37.4; O2SAT 95–97
--- NOTE | 2025-01-05 08:28 | ECG_ITS ---
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 Measurements Intervals [place] Rate: 71 P: 68 MS: 141 QRS: 71 QRSD: 90 T: 69 QT: 387 QTc: 423 Interpretive Statements SINUS RHYTHM No previous ECG available for comparison Electronically Signed On 01-05-2025 22:25:10 CDT by Familia Carrera M.D. [id number]
[2025-01-05 08:40] LABS: Glucose Point of Care 148 mg/dL (70-110)
[2025-01-05] MEDS: paliperidone ER 3 mg Tablet PO (08:40)
[2025-01-05 08:59] LABS: Basophils % 0.2 %; Eosinophils # 0.3 10^3/uL (0.0-0.8); Eosinophils % 6.4 %; Hematocrit 34.3 % (37-53); Lymphocytes # 2.3 10^3/uL (0.8-4.8); Lymphocytes % 57.4 %; Mean Corpuscular HGB Conc 34.4 g/dL (30-55); Mean Corpuscular Hemoglobin 33.6 pg (27-33); Mean Corpuscular Volume 97.7 fl (82-101); Mean Platelet Volume 9.3 fL (7.4-10.4); Monocytes # 0.3 10^3/uL (0.2-0.9); Monocytes % 8.1 %; Neutrophils # 1.12 10^3/uL (1.8-7.7); Neutrophils % 27.7 %; Nucleated Red Blood Cells % 0 %; Platelet Count 175 10^3/cmm (157-399); Red Blood Count 3.51 10^6/uL (3.85-5.65); Red Cell Distribution Width 13.9 % (12.1-15.1); White Blood Count 4.06 10^3/uL (3.29-11.43)
[2025-01-05 09:04] LABS: Alanine Aminotransferase 16 U/L (0-41); Alkaline Phosphatase 42 U/L (40-130); Aspartate Amino Transferase 16 U/L (0-40); Blood Urea Nitrogen 20 mg/dL (8-23); Calcium 8.7 mg/dL (8.5-10.5); Carbon Dioxide 24 mmol/L (22-29); Chloride 104 mmol/L (98-107); Creatinine Clr Calc Pharmacy 64.1292; Glomerular Filtration Rate 61.1 mL/min (90-130); Glucose 160 mg/dL (65-115); Osmolality Calculated 294 mOsm/kg (285-295); Sodium 139 mmol/L (136-145); Total Bilirubin 0.3 mg/dL (0.15-1.2)
--- NOTE | 2025-01-05 09:05 | PC.NURSE ---
At approx 0815 lab came in to draw pt blood. Pt was sitting on bench in front of nurses station. Lab got the attention of this nurse and asked me to come look at the pt that he was not looking well. When I got over to the pt he was minimally responding to touch and voice. He was warm and diaphoretic. He then would not respond to even sternal rub. I got the attention of Darlene GROVES and doron Grace came over to obtain v/s. Bld sugar 148 BP 124/58 P was down to 43 o2 sat 98%. Pt became very pale, increased diaphoresis, and would hold his breath and then take spontaneous deep breathes. Cont to have minimal responsiveness. The decision was made to call a rapid response @0821. Pt was laid down on the bench and kept comfortable. An EKG was obtained shortly after respiratories arrival. Dr. Ramirez examined pt and ordered for lab to go ahead with the draw and to move the pt to [facility] for tele monitoring timmy. Shortly after pt became more responsive and had lost control of his bladder. Next bp was 117/60 and pulse was 71. Aid and this nurse helped pt to get clothes changed and positioned in wheelchair at nurses station while we await a bed on medr. Report to Amanda on [facility]. Pt left the floor at 0928.
--- NOTE | 2025-01-05 09:27 | USCV_ITS ---
William Robles Age: 64 Gender: M : 1960 Exam Date: 01/05/2025 13:28 Ordering Phys: Ryan Osorio MD Technologist: Exam Location: [facility] [place] Indication: cp BP: 123 / 73 HR: 65 Rhythm: Sinus Technical Quality: Adequate MEASUREMENTS (Male / Female) Normal Values 2D ECHO LV Diastolic Diameter PLAX 4.6 cm 4.2 - 5.9 / 3.9 - 5.3 cm IVS Diastolic Thickness 0.9 cm 0.6 - 1.0 / 0.6 - 0.9 cm IVS Systolic Thickness 1.6 cm LVPW Diastolic Thickness 1.1 cm 0.6 - 1.0 / 0.6 - 0.9 cm LVPW Systolic Thickness 1.5 cm LVOT Diameter 2.0 cm LV Ejection Fraction 2D Teich 64.3 % LV Ejection Fraction MOD 4C 76.6 % LV Ejection Fraction MOD 2C 68.5 % LV Ejection Fraction 2C AL 69.0 % LA Diameter 3.3 cm RA Systolic Volume 4C AL 37.2 ml RA Systolic Volume 4C MOD 36.3 ml Aorta at Sinotubular Diameter 2.4 cm IVC Diameter 1.2 cm M-MODE LA Ao Ratio MM 1.1 MV E Point Septal Separation 1.6 cm AV Cusp Separation MM 2.3 cm DOPPLER AV Peak Velocity 165.7 cm/s LVOT Peak Velocity 115.0 cm/s AV Area Cont Eq vti 2.7 cm squared AV Area Cont Eq pk 2.1 cm squared MV Peak Velocity 96.0 cm/s MV Area PHT 3.1 cm squared Mitral E to A Ratio 1.0 TV Peak Velocity 184.0 cm/s TR Peak Velocity 193.0 cm/s TR Peak Gradient 14.9 mmHg TV Peak E Velocity 89.0 cm/s PV Peak Velocity 124.0 cm/s FINDINGS Left Ventricle Left ventricular ejection fraction is estimated at 88%. No regional wall motion abnormalities. Right Ventricle The right ventricle is normal in size and function. Right Atrium The right atrium is normal in size. Left Atrium The left atrium is normal in size. Mitral Valve Mildly thickened mitral valve. Aortic Valve No gross abnormalities noted Tricuspid Valve Trace tricuspid valve regurgitation. Pulmonic Valve Pulmonic valve not well visualized. Pericardium Normal pericardium without effusion. Aorta Normal aortic annulus size. IVC Normal inferior vena cava. CONCLUSIONS Left ventricular ejection fraction is estimated at 88%. No regional wall motion abnormalities. Mildly thickened mitral valve. Trace tricuspid valve regurgitation. There is no pericardial effusion. There are no intracardiac masses. No similar previous studies are available for comparison Dr Bowne Barker MD [facility] (Electronically Signed) Final Date: 06 January 2025 17:13 S
--- NOTE | 2025-01-05 09:37 | PC.OT ---
OT EVALUATION ORDERS FOR GROUP RECEIVED; PATIENT OFF UNIT DUE TO RAPID RESPONSE. HOLD OT TREATMENT TODAY WELL.
--- NOTE | 2025-01-05 09:38 | PC.NURSE ---
TRANSFERRED PT TO MED SURG VIA WHEELCHAIR, SECURITY AND THIS RN. ONCE PT TO ROOM 252-2 HE REQUESTS TO HAVE HIS CELL PHONE AND HAVE VISITORS. PT WAS EDUCATED THAT THE RULES AND REGUALATIONS FOR NPU FOLLOWS THE PT TO THE FLOOR AND VISITS ARE [id number] EACH DAY AND NO CELL PHONES. PT WAS STATED THAT WASN'T FAIR. RN SHOWED PT THE PHONE IN HIS ROOM AND GAVE HIM INSTRUCTIONS TO DIAL OUT. SUPPORT VOICED. PT TO ROOM AT 0930 AM, ONE TO ONE OBSERVATION SHEET GIVEN TO PSA.
[2025-01-05 09:59] LABS: Troponin(5th) Baseline < 6 ng/L (0-15)
[2025-01-05] MEDS: sodium chloride 0.9% 1,000 ML 75 ML IV ×2 (11:05→23:52)
[2025-01-05 11:09] LABS: Troponin 5 2HR 6.89 ng/L (0-15); Troponin 5 2HR Delta 0.89001 ABS# (0-10)
[2025-01-05 15:14] LABS: Troponin 5 6HR Delta 0.00001 ng/L (0-12)
--- NOTE | 2025-01-05 16:13 | P.PN_ITS ---
Subjective 2 Subjective: Patient was seen this morning, he had a episode of vasovagal response in n.p.o., nursing staff report as phlebotomy was attempting to get blood from patient, he was sitting down, when he became pale, diaphoretic, became less responsive, blood sugar 148, blood pressure 124/58, heart rates in the 40s, he was incontinence of stool and urine, no seizure-like episodes reported, I had examined patient in the neuropsychiatric unit shortly thereafter he is alert oriented x 3, following all commands, denies any headache, blurry vision, no nausea, no vomiting, no abdominal pain, no chest pain, palpitations, no muscle pain, no lightheadedness, he denies adverse reactions or response to blood draws in the past, no history of syncope Vitals/I&O/Wt Last Vital Signs Temp 98.1 F 01/05/25 14:58 Pulse 68 01/05/25 14:58 Resp 16 01/05/25 14:58 BP 122/67 01/05/25 14:58 Pulse Ox 97 01/05/25 14:58 O2 Del Method Room Air 01/05/25 14:58 01/05/25 01/05/25 01/05/25 06:59 14:59 22:59 Intake Total 480 / 480 Output Total 450 / 450 Balance 30 / 30 Weight last 48 hrs Weight 73.845 kg Weight 73.845 kg Physical Exam 2 Const: COMMON NORMALS: no acute distress and patient oriented x3 Resp: COMMON NORMALS: normal respiratory effort, No retractions, No use of accessory muscles and clear to auscultation bilaterally AUSCULTATION: clear to auscultation bilaterally Cardio: COMMON NORMALS: regular rate, regular rhythm, S1 normal heart sound present and S2 normal heart sound present RATE: regular rate RHYTHM: r egular rhythm HEART SOUNDS: S1 normal heart sound present and S2 normal heart sound present GI: COMMON NORMALS: Normal to inspection, nondistended, normoactive bowel sounds present and non-tender Extremity: COMMON NORMALS: no pedal edema Neuro: COMMON NORMALS: patient oriented x3, CN's II-XII intact bilaterally, moves all extremities and no focal motor deficits Psych: COMMON NORMALS: mental status grossly normal Data 01/05/25 08:36 01/05/25 08:36 A&P Assessment and plan (1) Acute encephalopathy: Plan Acute encephalopathy - Complaints of metallic taste, ordered copper levels, metals poisoning - Complaints of word finding difficulty, MRI no acute stroke -Strange mannerisms, frequent looks away, blank staring did a trial of Keppra for concerns for possible absence seizure's, no significant improvement of his mentation - Does complain of seeing things are not there, paranoid thinking highly suspicious for acute psychosis versus bipolar versus schizophrenia - Does report undergoing a divorce recently -Ammonia levels within normal limits -Now with possible vasovagal syncopal episode Plan - Monitor on medical floors -Possible anxiety/depression/schizophrenia/psychosis with recent divorce, consult Dr. Fournier - Aspirin, statin -CBC, CMP, troponin series, cardiac echo, telemetry monitoring, IV fluids - Full code - Lovenox, SCDs for DVT prophylaxis PDMP PDMP Reviewed: Not Reviewed Attestations 2 Medical Necessity Statement*: Patient requires hospitalization for acute encephalopathy, vasovagal syncope Diagnoses Acute encephalopathy G93.40
--- NOTE | 2025-01-05 16:57 | P.NPUPN_ITS ---
Subjective NPU 2 Subjective: 64-year-old male admitted with psychosis with a history of bipolar disorder and a history of daily cannabis use for many years. Patient had reported that he was fearful that there were criminals downstairs and the patient had stated that he did not wish to return back to the psychiatric unit. The patient had been placed on the medical surgical unit where he was seen today after he had had a vasovagal response with a drop in blood pressure noted. Patient had been compliant with his medication regimen. He had continued to report feeling unsafe in his own home since July of 2024. He was unable to specify why he felt unsafe. He reported continued concerns about some harm happening to him on the psychiatric unit as well. He had reported improved sleep. His family members had visited earlier today on the medical unit. Mental Status Exam 2 MSE Comments: This is a short, slender but well developed white male with adequate grooming with and limited eye contact. No abnormal involuntary motor movements except for mild to moderate psychomotor retardation. He was mostly cooperative with exam in moderate distress. Speech was slightly decreased in rate and volume with pauses reflective of word finding or desire to be overly perfect with word choice. Mood described as fine. Affect was intense and appeared agitated in discussing the return back to the psychiatric unit. Thought process, linear. Thought content: patient denies suicidal or homicidal ideation. There was evidence of paranoia. He denied auditory or visual hallucinations. Attention and concentration are intact and memory appeared mostly reliable, but none were formally tested. He is alert and oriented x 3. Insight and judgment appeared limited, impulse control was impaired. Vitals/I&O/Wt Last Vital Signs Temp 98.1 F 01/05/25 14:58 Pulse 68 01/05/25 14:58 Resp 16 01/05/25 14:58 BP 122/67 01/05/25 14:58 Pulse Ox 97 01/05/25 14:58 O2 Del Method Room Air 01/05/25 14:58 01/05/25 01/05/25 01/05/25 06:59 14:59 22:59 Intake Total 480 / 480 Output Total 450 / 450 320 / 770 Balance 30 / 30 -320 / -290 Weight last 48 hrs Weight 73.845 kg Weight 73.845 kg Data NPU 01/05/25 08:36 01/05/25 08:36 A&P Assessment and plan (1) Altered mental status: (2) Acute encephalopathy: (3) Psychosis: (4) Cannabis use disorder, severe, dependence: (5) History of bipolar disorder: (6) Sleep paralysis: (7) Sleep disturbance, unspecified: Plan This is a 64 year old white male with a history of drug use reporting cannabis use for 50 years and diagnosis of a psychotic disorder namely bipolar disorder for which she reportedly is on disability secondary to who presents with altered mental status. The assessment indicates that the patient is experiencing a psychosis of unknown etiology but possibly related to to sleep disturbances, cannabis or medical comorbidity yet to be unveiled or revealed. Current situation potentially exacerbated by a lack of sleep. There is a noted history of bipolar disorder, and the patient has been experiencing emotional difficulties, which he self-admitted. The patient has a family history of brain tumors and bipolar disorder, which may contribute to his current condition. The patient also reports a spiritual ascension experience, which he associates with his current state. We discussed the role his daily cannabis use could be playing in his presentation but he is very resistant to the idea that cannabis can be a negative thing under any circumstance. 1. Continue Invega 3mg daily. 2. Is Bipolar symptoms/psychotic symptoms kindled by chronic THC use at home. 3. Will consider whether transfer to neuropsychiatric unit makes sense if medically cleared 4. Recommend sober living treatment at the highest level of care to which the patient is willing to commit. 5. Obtain collateral information. Spoke to son who has plans for an affidavit reporting that this is very out of his normal character. 6. Initiate 96-hour hold. PDMP PDMP Reviewed: Not Reviewed Attestations NPU 2 Medical Necessity Statement*: Inpatient hospitalization is medically necessary and the clinically appropriate intervention at this time. We will monitor/initiate medications and make changes as indicated. Likely length of stay 5-7 days. Coding Level of Care Code Acute Code for [facility] Fwd Diagnoses Altered mental status R41.82 Acute encephalopathy G93.40 Psychosis F29 Cannabis use disorder, severe, dependence F12.20 History of bipolar disorder Z86.59 Sleep paralysis G47.8 Sleep disturbance, unspecified G47.9
[2025-01-05] MEDS: atorvastatin 40 mg Tablet PO (21:08)
[2025-01-05] MEDS: trazodone 50 mg Tablet PO ×2 (21:36→23:00)
[2025-01-06] VITALS (9 sets, daily range): BP systolic 108–148; BP diastolic 58–82; PULSE 60–109; RESP 15–20; TEMP 36.8–37.1; O2SAT 93–98
[2025-01-06] MEDS: aspirin 81 mg EC Tablet PO (07:58)
[2025-01-06] MEDS: paliperidone ER 3 mg Tablet PO (07:58)
[2025-01-06 09:24] LABS: Basophils % 0.5 %; Eosinophils # 0.2 10^3/uL (0.0-0.8); Eosinophils % 4.7 %; Hematocrit 35.2 % (37-53); Lymphocytes # 1.6 10^3/uL (0.8-4.8); Lymphocytes % 40.6 %; Mean Corpuscular HGB Conc 34.1 g/dL (30-55); Mean Corpuscular Hemoglobin 33.9 pg (27-33); Mean Corpuscular Volume 99.4 fl (82-101); Mean Platelet Volume 9.4 fL (7.4-10.4); Monocytes # 0.5 10^3/uL (0.2-0.9); Monocytes % 11.1 %; Neutrophils # 1.71 10^3/uL (1.8-7.7); Neutrophils % 42.4 %; Nucleated Red Blood Cells % 0 %; Platelet Count 192 10^3/cmm (157-399); Red Blood Count 3.54 10^6/uL (3.85-5.65); White Blood Count 4.04 10^3/uL (3.29-11.43)
--- NOTE | 2025-01-06 12:51 | PC.NURSE ---
Called report to Nurse Vic in NPU
--- NOTE | 2025-01-06 15:31 | PC.OT ---
PATIENT WAS SEEN BY JUNE IN NPU GROUP AND PARTICIPATED APPROPRIATELY EVIDENCED BY FEEDING SELF, USING THE BATHROOM RODRIGUEZ AND PARTICPATING IN GROUP DISCUSSION. NO FURTHER NEED FOR INDIVIDUAL SKILLED OT TREATMENT. WOULD BENEFIT FROM SKILLED OT GROUPS WHILE ON THE UNIT
--- NOTE | 2025-01-06 15:51 | P.PN_ITS ---
Subjective 2 Subjective: Patient was seen this morning, he is alert oriented x2, following all commands, he denies any fevers, chills, cough, no, he is ambulating around his room, without any difficulty, denies lightheadedness, dizziness, no chest pain, palpitations, nursing staff tell me that he was doing push-ups last night Vitals/I&O/Wt Last Vital Signs Temp 98.8 F 01/06/25 12:59 Pulse 72 01/06/25 12:59 Resp 18 01/06/25 12:59 BP 146/72 01/06/25 12:59 Pulse Ox 98 01/06/25 12:59 O2 Del Method Room Air 01/06/25 10:58 01/06/25 01/06/25 01/06/25 06:59 14:59 22:59 Intake Total 958.75 / 1678.75 1240 / 1240 Output Total 500 / 500 Balance 958.75 / 698.75 740 / 740 Physical Exam 2 Const: COMMON NORMALS: no acute distress ORIENTATION/CONSCIOUSNESS: Yes awake, Yes oriented to person and Yes oriented to place Resp: COMMON NORMALS: normal respiratory effort, No retractions, No use of accessory muscles and clear to auscultation bilaterally AUSCULTATION: clear to auscultation bilaterally Cardio: COMMON NORMALS: regular rate, regular rhythm, S1 normal heart sound present and S2 normal heart sound present RATE: regular rate RHYTHM: r egular rhythm HEART SOUNDS: S1 normal heart sound present and S2 normal heart sound present GI: COMMON NORMALS: Normal to inspection, nondistended, normoactive bowel sounds present and non-tender Extremity: COMMON NORMALS: no pedal edema Neuro: SENSORIUM/ORIENTATION: Yes oriented to person and Yes oriented to place Psych: COMMON NORMALS: mental status grossly normal Data 01/06/25 08:55 01/05/25 08:36 A&P Assessment and plan (1) Acute encephalopathy: Plan Acute encephalopathy - Complaints of metallic taste, ordered copper levels, metals poisoning - Complaints of word finding difficulty, MRI no acute stroke -Strange mannerisms, frequent looks away, blank staring did a trial of Keppra for concerns for possible absence seizure's, no significant improvement of his mentation - Does complain of seeing things are not there, paranoid thinking highly suspicious for acute psychosis versus bipolar versus schizophrenia - Does report undergoing a divorce recently -Ammonia levels within normal limits -Now with possible vasovagal syncopal episode Plan - Will moved to n.p.u -Possible anxiety/depression/schizophrenia/psychosis with recent divorce, consult Dr. Fournier - Aspirin, statin - Full code - Lovenox, SCDs for DVT prophylaxis PDMP PDMP Reviewed: Not Reviewed Attestations 2 Medical Necessity Statement*: Patient requires hospitalization for altered mental status Coding Level of Care Code Acute Code for [facility] Fwd Diagnoses Acute encephalopathy G93.40
--- NOTE | 2025-01-06 17:02 | W.PM.NPUPNS ---
Subjective NPU Subjective: 64-year-old male admitted with psychosis with a history of bipolar disorder and a history of daily cannabis use for many years. Patient was brought back to the neuropsychiatric unit this afternoon. He had continued to have conversations with himself and remained somewhat guarded regarding why he was brought into the hospital. Patient had reported distrust of his sister's despite them coming to visit. He stated that he would like to go home to live with them. He continued to report feeling unsafe stating that he was concerned about others harming him here on the psychiatric unit. He had continued to report that the people here in the hospital including patients were all criminals. Mental Status Exam MSE Comments: This is a short, slender but well developed white male with adequate grooming with and limited eye contact. No abnormal involuntary motor movements except for mild to moderate psychomotor retardation. He was mostly cooperative with exam in moderate distress. Speech was slightly decreased in rate and volume with pauses reflective of word finding or desire to be overly perfect with word choice. Mood described as okay. Affect was irritable and mood congruent. Thought process was linear. Thought content: patient denies suicidal or homicidal ideation. There was evidence of paranoia. He denied auditory or visual hallucinations. Attention and concentration are intact and memory appeared mostly reliable, but none were formally tested. He is alert and oriented x 3. Insight and judgment appeared limited, impulse control was impaired. Vitals/I&O/Wt Last Vital Signs Temp 98.8 F 01/06/25 12:59 Pulse 72 01/06/25 12:59 Resp 18 01/06/25 12:59 BP 146/72 01/06/25 12:59 Pulse Ox 98 01/06/25 12:59 O2 Del Method Room Air 01/06/25 10:58 01/06/25 01/06/25 01/06/25 06:59 14:59 22:59 Intake Total 958.75 / 1678.75 1240 / 1240 Output Total 500 / 500 Balance 958.75 / 698.75 740 / 740 Data NPU 01/06/25 08:55 01/05/25 08:36 A&P Assessment and plan (1) Acute encephalopathy: Plan This is a 64 year old white male with a history of drug use reporting cannabis use for 50 years and diagnosis of a psychotic disorder namely bipolar disorder for which she reportedly is on disability secondary to who presents with altered mental status. The assessment indicates that the patient is experiencing a psychosis of unknown etiology but possibly related to to sleep disturbances, cannabis or medical comorbidity yet to be unveiled or revealed. Current situation potentially exacerbated by a lack of sleep. There is a noted history of bipolar disorder, and the patient has been experiencing emotional difficulties, which he self-admitted. The patient has a family history of brain tumors and bipolar disorder, which may contribute to his current condition. The patient also reports a spiritual ascension experience, which he associates with his current state. We discussed the role his daily cannabis use could be playing in his presentation but he is very resistant to the idea that cannabis can be a negative thing under any circumstance. 1. Continue Invega 3mg daily. 2. Is Bipolar symptoms/psychotic symptoms kindled by chronic THC use at home. 3. Will consider whether transfer to neuropsychiatric unit makes sense if medically cleared 4. Recommend sober living treatment at the highest level of care to which the patient is willing to commit. 5. Obtain collateral information. Spoke to son who has plans for an affidavit reporting that this is very out of his normal character. 6. Patient remains on 96 hour hold. PDMP PDMP Reviewed: Not Reviewed Involuntary Hold Information Hold Status: Legal Status: 96 Hour Hold Date/Time Hold Expires: 01/09/2025 @ 0001 Attestations NPU Medical Necessity Statement*: Inpatient hospitalization is medically necessary and the clinically appropriate intervention at this time. We will monitor/initiate medications and make changes as indicated. Likely length of stay 5-7 days. Coding Level of Care Code Acute Code for [facility] Diagnoses Acute encephalopathy G93.40
[2025-01-06] MEDS: trazodone 50 mg Tablet PO (21:03)
[2025-01-06] MEDS: atorvastatin 40 mg Tablet PO (21:03)
[2025-01-06] MEDS: hyDROXYzine 25 mg Capsule 50 MG PO (21:04)
--- NOTE | 2025-01-07 00:33 | PC.NURSE ---
currently trying to use the phone even though they have been turned off for the night.
--- NOTE | 2025-01-07 00:47 | PC.NURSE ---
Pt. is not getting along with his roommate. Pt. likes it quit and roommate has been up thus far this evening and talking loudly. Staff is moving pt. to North side to prevent any incidents that could arise.
--- NOTE | 2025-01-07 01:03 | PC.NURSE ---
PATIENT MOVED TO ROOM 127-2 DUE TO ROOMMATES INCREASING ANXIETY.
[2025-01-07 06:00] VITALS: BP 106/74; PULSE 76; RESP 18; TEMP 37.1; O2SAT 96
[2025-01-07] MEDS: nicotine 21 mg Patch 1 PATCH TRANSDERMA (08:01)
[2025-01-07] MEDS: aspirin 81 mg EC Tablet PO (08:01)
[2025-01-07] MEDS: paliperidone ER 3 mg Tablet PO (08:01)
[2025-01-07 14:00] VITALS: BP 114/67; PULSE 97; RESP 17; TEMP 37.6; O2SAT 96
[2025-01-07 14:49] LABS: COMPLEMENT COMPONENT C3C 111 mg/dL (82-185); COMPLEMENT COMPONENT C4C 27 mg/dL (15-53)
--- NOTE | 2025-01-07 16:28 | P.NPUPN_ITS ---
Subjective NPU 2 Subjective: 64-year-old male admitted with psychosis with a history of bipolar disorder and a history of daily cannabis use for many years. The patient had an evaluation for testing for independent living skills and performed adequately. He had reported that he was feeling better today. He reported no side effects from his medication but did report having some difficulties with sleep. He had reported difficulties with frequent awakenings at night. He had admitted to taking marijuana for nearly 50 years. He had reported a good visit with family members. He had reported no problems with trusting them and stated that he would be fine with living with them temporarily until he got better. He had denied any depression at this time. He had reported no concerns about being unsafe today. Mental Status Exam 2 MSE Comments: This is a short, slender but well developed white male with adequate grooming with and limited eye contact. No abnormal involuntary motor movements except for mild psychomotor retardation. He was cooperative with exam in no acute distress. Speech was slow but steady in rate and volume with pauses reflective of word finding or desire to be overly perfect with word choice. Mood described as good. Affect was less anxious. Thought process was linear. Thought content: patient denies suicidal or homicidal ideation. There was no evidence of paranoia. He denied auditory or visual hallucinations. Attention and concentration are intact and memory appeared mostly reliable, but none were formally tested. He is alert and oriented x 3. Insight and judgment are improving. Impulse control appeared better today. Vitals/I&O/Wt Last Vital Signs Temp 99.6 F 01/07/25 14:00 Pulse 97 01/07/25 14:00 Resp 17 01/07/25 14:00 BP 114/67 01/07/25 14:00 Pulse Ox 96 01/07/25 14:00 O2 Del Method Room Air 01/07/25 06:00 01/07/25 01/07/25 01/07/25 06:59 14:59 22:59 Intake Total 448 / 448 Balance 448 / 448 Data NPU 01/06/25 08:55 01/05/25 08:36 Micro: Microbiology 01/02/25 08:05 Blood Culture - Final Blood NO GROWTH AFTER 5 DAYS 01/02/25 07:58 Blood Culture - Final Blood NO GROWTH AFTER 5 DAYS Microbiology 01/02/25 08:05 Blood Blood Culture - Final NO GROWTH AFTER 5 DAYS 01/02/25 07:58 Blood Blood Culture - Final NO GROWTH AFTER 5 DAYS A&P Assessment and plan (1) Acute encephalopathy: Plan This is a 64 year old white male with a history of drug use reporting cannabis use for 50 years and diagnosis of a psychotic disorder namely bipolar disorder for which she reportedly is on disability secondary to who presents with altered mental status. The assessment indicates that the patient is experiencing a psychosis of unknown etiology but possibly related to to sleep disturbances, cannabis or medical comorbidity yet to be unveiled or revealed. Current situation potentially exacerbated by a lack of sleep. There is a noted history of bipolar disorder, and the patient has been experiencing emotional difficulties, which he self-admitted. The patient has a family history of brain tumors and bipolar disorder, which may contribute to his current condition. The patient also reports a spiritual ascension experience, which he associates with his current state. We discussed the role his daily cannabis use could be playing in his presentation but he is very resistant to the idea that cannabis can be a negative thing under any circumstance. 1. Continue Invega 3mg daily. 2. Are Bipolar symptoms/psychotic symptoms kindled by chronic THC use at home. 3. Will consider whether transfer to neuropsychiatric unit makes sense if medically cleared 4. Recommend sober living treatment at the highest level of care to which the patient is willing to commit. 5. Patient appearing better today. 6. Patient remains on 96 hour hold. Trial of doxepin for insomnia tonight. PDMP PDMP Reviewed: Not Reviewed Involuntary Hold Information 2 Hold Status: Legal Status: 96 Hour Hold Date/Time Hold Expires: 01/09/2025 @ 0001 Attestations NPU 2 Medical Necessity Statement*: Inpatient hospitalization is medically necessary and the clinically appropriate intervention at this time. We will monitor/initiate medications and make changes as indicated. The patient's likely length of stay is 1-2 days. Coding Level of Care Code Acute Code for [facility] Diagnoses Acute encephalopathy G93.40
[2025-01-07 20:04] VITALS: BP 132/69; PULSE 99; RESP 16; TEMP 36.7; O2SAT 99
[2025-01-07] MEDS: atorvastatin 40 mg Tablet PO (20:24)
[2025-01-07] MEDS: doxepin 10 mg Capsule PO (20:24)
[2025-01-07] MEDS: hyDROXYzine 25 mg Capsule 50 MG PO ×2 (21:13→22:47)
[2025-01-07] MEDS: OLANZapine 5 mg ODT PO (22:47)
[2025-01-08 03:20] LABS: CENTROMERE B ANTIBODY <1.0 NEG AI (<1.0 NEG); JO-1 ANTIBODY <1.0 NEG AI (<1.0 NEG); RNP ANTIBODY <1.0 NEG AI (<1.0 NEG); SCL-70 ANTIBODY <1.0 NEG AI (<1.0 NEG); SJOGREN'S ANTIBODY (SS-A) <1.0 NEG AI (<1.0 NEG); SM ANTIBODY <1.0 NEG AI (<1.0 NEG); SS-B <1.0 NEG AI (<1.0 NEG)
[2025-01-08 06:00] VITALS: BP 114/67; PULSE 77; RESP 20; TEMP 36.9; O2SAT 99
[2025-01-08 08:09] LABS: THYROID PEROXIDASE ANTIBODIES <1 IU/mL (<9)
[2025-01-08] MEDS: aspirin 81 mg EC Tablet PO (08:17)
[2025-01-08] MEDS: paliperidone ER 3 mg Tablet PO (08:17)
--- NOTE | 2025-01-08 08:34 | PC.NURSE ---
when assessing pt this AM. pt stated he has done all he could for patients and staff here and now he needs to go home. when asked about what was the plan when he got home to prevent pt from becoming depressed pt states Oh I was never depressed. my divorce was final in Aug so it has been hard after 32 years of marriage and I am alone and I need someone to take care of . when this mortgage underwriter asked pt how did he believe he was going to deal with going home and being alone with just himself to take care of. pt stated he time was up and he has done his time. that he has helped everyone here and that everyone loves him. when this mortgage underwriter stated the 96 hour hold is just time spent it can be extended, what We want is for you to work on yourself and to help yourself instead of others. pt became noticeably irritated stating There you go threatening me, why would you do that, I have done my time here I am not getting anything from here, I have no more to offer these people. at that time this mortgage underwriter attempted to let pt know my intention was not to threaten him it was an honest question on what are his plans for the future. pt stated yes it was you intended to threaten me with having to stay longer. this mortgage underwriter assured pt that was not my intention. I want him to think about how he intends to go home and keep on his medication, and to stay out of the hospital, pt demeanor changed at this point he stated oh I am going to fix up my house, put it up for sell and then move to [place] and be near my son. at that time I informed pt yes this is what I was needing to hear.
[2025-01-08 10:59] LABS: Copper Level 119 mcg/dL (70-175)
--- NOTE | 2025-01-08 12:53 | DCPLANNER ---
. IMM was given to pt and right explained and copy placed in pts file.
[2025-01-08 13:09] VITALS: BP 145/76; PULSE 75; RESP 16; TEMP 37.1; O2SAT 100
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
[2025-01-08 13:23] VITALS: BP 145/76; PULSE 75; RESP 16; TEMP 37.1; O2SAT 100
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
[2025-01-08 14:34] LABS: COMPLEMENT, TOTAL (CH50) 60 U/mL (31-60)
[2025-01-08 15:24] LABS: ANA SCREEN, IFA NEGATIVE (NEGATIVE)
[2025-01-09 18:21] LABS: Collection Sample VENOUS
[2025-01-13 00:30] LABS: DNA AB (DS) CRITHIDIA,IFA NEGATIVE (NEGATIVE)
== END 2025-01-08 13:50 | disposition home or self-care (01) | DRG 885 ==
LOC: ER 06:44 → ER IP 12:33 → MEDSURG 14:04 → NP 01-03 15:02 → MEDSURG 01-05 09:46 → NP 01-06 12:34
PROVIDERS: Admitting Provider Family Medicine; Emergency Provider Family Medicine; Family Provider Family Medicine; Visit Provider Psychiatry & Neurology Psychiatry
DX: F23 Brief psychotic disorder (principal); G93.40 Encephalopathy, unspecified; F31.9 Bipolar disorder, unspecified; R10.9 Unspecified abdominal pain; K59.00 Constipation, unspecified; F41.9 Anxiety disorder, unspecified; F12.20 Cannabis dependence, uncomplicated; Z87.891 Personal history of nicotine dependence; G47.8 Other sleep disorders
CPT/HCPCS: 36415; 36416; 70450; 70551; 74176; 80053; 80061; 80306; 80307; 81001; 82140; 82175; 82300; 82495; 82525; 82550; 82962; 83018; 83036; 83605; 83655; 83690; 83825; 83885; 84145; 84255; 84443; 84484; 84630; 85025; 85651; 85730; 86140; 86160; 86162; 86235; 86255; 86376; 87040; 87637; 93005; 93306; 94664; 96372; 96374; 97150; 97165; 97166; 97167; 99285; G0378; J1630; J1953; J2470; J7030; J9999